=== PATIENT | male | born 1940 | race Caucasian/White ===

== ENCOUNTER 2018-07-18 15:44 | Emergency (ER) | payer OTHER, MEDICAID ==
[~2018-07-18] VITALS: Ht 170.2 cm; Wt 84.8 kg
--- NOTE | 2018-07-18 15:44 | NUR ---
Patient BIBA ACLS, transferred to bed 4. RN evaluating patient at bedside.
[2018-07-18 15:49] VITALS: BP 103/46
--- NOTE | 2018-07-18 15:50 | NUR ---
Rajesh prater in ED - 07/18/18 at 1551 by [email or web address] Patient ambulated to bed 4. RN evaluating patient at bedside.
--- NOTE | 2018-07-18 15:53 | NUR ---
PT BIBA FOR R SHOULDER PAIN FROM FALL. PT STATES "I STEPPED AND FELL" PT DENIES BEING DIZZY. PT COMPLAININF OF R SHOULDER AND ELBOW PAIN AT 8/10 THAT INCREASES WITH ARM MOVEMENT. PT HAS SKIN TEAR AND BRUISING ON R ELBOW. NO DEFORMITIES NOTED, NO SWELLING PRESENT, PT DENIES TINGLING OR NUMBNESS, CAP REFIL DELAYED BL, WEAKNESS IN R ARM. PT DENIES HITTING HEAD, [id number], COOPERATIVE, SPEECH IS CLEAR, GAIT UNSTEADY, FACIAL SYMMETRY INTACT. VSS. ER MD TO SEE PT. MEDHX:HTN, DM, CVA RX:PT UNABLE TO NAME MEDICATIONS
--- NOTE | 2018-07-18 17:13 | NUR ---
body technician at bedside.
[2018-07-18 19:35] VITALS: BP 141/88
--- NOTE | 2018-07-18 19:35 | NUR ---
Patient discharged with v/s stable. Written and verbal after care instructions given and explained. Patient alert, oriented and verbalized understanding of instructions. Wheel Chair Assisted with to car. All questions addressed prior to discharge. ID band removed. Patient advised to follow up with PMD. Rx of NORCO AND COLACE given. Patient educated on indication of medication including possible reaction and side effects. Opportunity to ask questions provided and answered.
== END 2018-07-18 19:35 | disposition home or self-care (01) ==
LOC: MED 15:44
DX: S42.91XA Fracture of right shoulder girdle, part unspecified, initial encounter for closed fracture (principal); M25.531 Pain in right wrist; M25.522 Pain in left elbow; E11.9 Type 2 diabetes mellitus without complications; I10 Essential (primary) hypertension; Z86.73 Personal history of transient ischemic attack (TIA), and cerebral infarction without residual deficits; W01.0XXA Fall on same level from slipping, tripping and stumbling without subsequent striking against object, initial encounter; Y93.89 Activity, other specified; Y92.89 Other specified places as the place of occurrence of the external cause; Y99.8 Other external cause status
CPT/HCPCS: 73030; 73070; 73100; 99283

== ENCOUNTER 2018-07-23 05:40 | Emergency (ER) | payer OTHER, MEDICAID ==
[~2018-07-23] VITALS: Ht 170.2 cm; Wt 77.1 kg
[2018-07-23 05:44] VITALS: BP 146/85
[2018-07-23] MEDS ORDERED: ACETAMINOPHEN EXTRA STRENGTH 500 MG TAB PO ONE (05:45)
--- NOTE | 2018-07-23 05:49 | NUR ---
PT R ELBOW COVERED WITH NON ADHERENT DRESSING AND WRAPPED WITH COFLEX TAPE AFTER BACITRACIN APPLIED. +CSM
--- NOTE | 2018-07-23 05:50 | NUR ---
PT TO ED BIBA FOR C/O R ELBOW AND SHOULDER PAIN S/P MECHANICAL FALL X TODAY. PT DENIES LOC. DENIES N/V. SWELLING NOTED TO R HAND AND ELBOW. NO OBVIOUS DEFORMITY NOTED. ABRASIONS NOTED TO R ELBOW WITH CONTROLLED BLEEDING. CMS IS INTACT. ROM IS LIMITED TO R SHOULDER AND ELBOW. PT ARRIVED TO ED IN R SHOUDLER/ELBOW SLING WITH BRUSING TO THE AREA FROM PREVIOUS FALL X 1 WEEK AGO. PT PLACED INTO BED, WITH ALL MONITORS ATTACHED. PENDING MD GROSSMAN.
[2018-07-23] MEDS ORDERED: BACITRACIN OINT 500 UNITS/GM PKT TP ONE ×2 (05:54→06:00)
--- NOTE | 2018-07-23 06:30 | NUR ---
PT REPORTS PAIN DECREASED TO 5/10 S/P TYLENOL ADMIN.
--- NOTE | 2018-07-23 06:35 | NUR ---
SHOULDER IMMOBILIZER APPLIED TO R ARM BY MARYANN TIM. PT TOLERATED APPLICATION WELL.
--- NOTE | 2018-07-23 06:46 | NUR ---
Patient discharged with v/s stable. Written and verbal after care instructions given and explained. Patient alert, oriented and verbalized understanding of instructions. Wheelchair assisted to vehicle. All questions addressed prior to discharge. ID band removed. Patient advised to follow up with PMD. Rx of NORCO given. Patient educated on indication of medication including possible reaction and side effects. Opportunity to ask questions provided and answered.
[2018-07-23 06:47] VITALS: BP 139/81
== END 2018-07-23 06:47 | disposition home or self-care (01) ==
LOC: MED 05:40
DX: S42.291A Other displaced fracture of upper end of right humerus, initial encounter for closed fracture (principal); E11.9 Type 2 diabetes mellitus without complications; I10 Essential (primary) hypertension; Z86.73 Personal history of transient ischemic attack (TIA), and cerebral infarction without residual deficits; W18.30XA Fall on same level, unspecified, initial encounter; Y93.89 Activity, other specified; Y92.009 Unspecified place in unspecified non-institutional (private) residence as the place of occurrence of the external cause; Y99.8 Other external cause status
CPT/HCPCS: 73030; 73080; 99283; Q0092